=== PATIENT | female | born 1990 ===

== ENCOUNTER 2020-01-28 19:51 | Emergency (ER) | payer SELFPAY ==
[2020-01-28 20:03] VITALS: BP 122/75
[2020-01-28] MEDS ORDERED: KETOROLAC TROMETHAMINE 60 MG/2 ML SDV IM ONE (20:27)
--- NOTE | 2020-01-28 20:30 | ER Document Report ---
ED GI/ - General Chief Complaint: Pelvic Pain Stated Complaint: VAGINAL BLEEDING POST Time Seen by Provider: 01/28/20 20:11 Primary Care Provider: [facility] [Provider Group] - Follow up as needed [facility] [Primary Care Provider] - Follow up as needed Mode of Arrival: Ambulatory Information source: Patient Cannot obtain history due to: Other - [employer] interpreter [id number] used for interview Notes: Interview completed using [employer] interpreter number [id number]. 29-year-old female presented to ED for complaint of pelvic cramping and vaginal bleeding. She states she was seen on Wednesday and was told she was having a miscarriage. She has been [facility] the [facility] since then and the hCG has gone down. She states she was continuing to have cramping and vaginal bleeding. She states she has been through 3 pads today. She states she did have some small blood clots. She states she had taken 2 Tylenol earlier today but no other medications for her pain and discomfort. She is 3 para 1. She states she did have an appointment with the health department tomorrow to be sure that her hCG levels were going down. 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 Associated symptoms: Other - Vaginal bleeding and pelvic cramping Exacerbated by: Movement Relieved by: Denies Similar symptoms previously: Yes Recently seen / treated by doctor: Yes - Related Data Allergies/Adverse Reactions: No Known Allergies Allergy (Unverified 01/28/20 20:15) Past Medical History - General Information source: Patient - Social History Smoking Status: Never Smoker Chew tobacco use (# tins/day): No Frequency of alcohol use: None Drug Abuse: None Lives with: Family Family History: Reviewed & Not Pertinent Patient has homicidal ideation: No - Past Medical History Cardiac Medical History: Reports: None Pulmonary Medical History: Reports: None EENT Medical History: Reports: None Neurological Medical History: Reports: None Endocrine Medical History: Reports: None Renal/ Medical History: Reports: None Malignancy Medical History: Reports: None GI Medical History: Reports: None Musculoskeletal Medical History: Reports None Skin Medical History: Reports None Psychiatric Medical History: Reports: None Traumatic Medical History: Reports: None Infectious Medical History: Reports: None Surgical Hx: Negative Past Surgical History: Reports: None Review of Systems - Review of Systems Constitutional: No symptoms reported EENT: No symptoms reported Cardiovascular: No symptoms reported Respiratory: No symptoms reported Gastrointestinal: No symptoms reported Genitourinary: No symptoms reported Female Genitourinary: Other - Miscarriage Fridays continues with pelvic pain and vaginal bleeding Musculoskeletal: No symptoms reported Skin: No symptoms reported Hematologic/Lymphatic: No symptoms reported Neurological/Psychological: No symptoms reported Physical Exam - Vital signs Vitals: Temp 98.6 F 01/28/20 19:53 Interpretation: Normal - General General appearance: Appears well, Alert - HEENT Head: Normocephalic, Atraumatic Eyes: Normal Pupils: PERRL - Respiratory Respiratory status: No respiratory distress Chest status: Nontender Breath sounds: Normal Chest palpation: Normal - Cardiovascular Rhythm: Regular Heart sounds: Normal auscultation Murmur: No - Abdominal Inspection: Normal Distension: No distension Bowel sounds: Normal Tenderness: Tender - Lower abdomen/pelvic. Organomegaly: No organomegaly - Back Back: Normal, Nontender - Extremities General upper extremity: Normal inspection, Nontender, Normal color, Normal ROM, Normal temperature General lower extremity: Normal inspection, Nontender, Normal color, Normal ROM, Normal temperature, Normal weight bearing. No: Raisa's sign - Neurological Neuro grossly intact: Yes Cognition: Normal Orientation: AAOx4 Quintin Coma Scale Eye Opening: Spontaneous Grover Coma Scale Verbal: Oriented Quintin Coma Scale Motor: Obeys Commands Grover Coma Scale Total: 15 Speech: Normal Motor strength normal: LUE, RUE, LLE, RLE Sensory: Normal - Psychological Associated symptoms: Normal affect, Normal mood - Skin Skin Temperature: Warm Skin Moisture: Dry Skin Color: Normal Course - Re-evaluation Re-evalutation: 01/28/20 23:20 Patient states she was told on Wednesday that she had had a miscarriage. She states she is continuing to have vaginal bleeding with small blood clots at times. She states she continues to have pelvic pain and has taken 2 Tylenol earlier this morning nothing else today. She states she is not taking any ibuprofen. Patient states she came into reevaluate her pelvic pain and bleeding. Patient was treated with Toradol in the emergency room given instructions on ibuprofen and warm packs and instructed to follow-up [facility] tomorrow for her hCG levels she was also given the name and number of [facility] if she had any increase in pain or vaginal bleeding. She was also instructed to return to the ED for any increase in pain or bleeding. Patient was alert oriented respirations regular nonlabored. [employer] parts interpreter [id number] was used for the interview and instructions. Patient was able to verbalize understanding and agreement with treatment plan through the parts interpreter. - Vital Signs Vital signs: Temp Pulse Resp BP Pulse Ox 98.6 F 97 20 122/75 97 01/28/20 20:00 01/28/20 20:00 01/28/20 20:00 01/28/20 20:00 01/28/20 20:00 Discharge - Discharge Clinical Impression: Vaginal bleeding post miscarriage, Pain, pelvic, female Condition: Stable Disposition: HOME, SELF-CARE Instructions: Use of Dgir-Pah-Ursivsx Ibuprofen ([facility]), Miscarriage ([facility]), Toradol Injection ([facility]), Warm Packs ([facility]), Follow-Up Care ([facility]) Additional Instructions: Miscarriage You have had a miscarriage (medically called a "spontaneous "). The miscarriage occurred because the fetus did not develop normally. There is nothing you did to cause it, and nothing you could have done to prevent it. About one in four ends in miscarriage. You should rest in bed for two or three days. As there is some risk of infection of the uterus, you should not have intercourse for one week (or until okayed by your physician). You might not have a period for six to eight weeks. You should not become again for at least three months -- the uterus requires time to get back to normal. Call the doctor or return for re-examination if there is heavy or persistent vaginal bleeding, fever, foul discharge, continued cramping pains, or abdominal pain. Toradol Injection You have been given an injection of ketorolac tromethamine (Toradol). This is an excellent, safe drug for pain control. It also has potent antiinflammatory action. You should have significant pain relief within about one hour. Toradol is not addicting and is non-sedating. It does not interfere with driving or work. Call or return if you develop itching, hives, shortness of breath, or rash. Ibuprofen Ibuprofen is an excellent, safe drug for pain control. In addition, it has potent antiinflammatory effects which are beneficial, especially in the treatment of injuries, arthritis, or tendonitis. It's best to take ibuprofen with food. Persons with ulcer disease or allergy to aspirin should notify their physician of this before taking ibuprofen. Take the medication exactly as prescribed. Don't take additional doses unless instructed to do so by your doctor. If you develop wheezing, shortness of breath, hives, faintness, stomach pain, vomiting, or dark black stools, return for re-evaluation at once. Warm Packs After approximately two days, apply gentle heat (such as a heating pad or hot water bottle) for about 20 to 30 minutes about every two hours -- at least four times daily. Warmth and elevation will help you make a more rapid recovery, and will ease the pain considerably. Do not use HOT heat, and never apply heat for longer than 30 minutes. The continuous heat can invisibly damage skin and muscles -- even when no burn is seen on the surface. Damaged muscles can make you MORE sore. FOLLOW-UP CARE: If you have been referred to a physician for follow-up care, call the physicians office for an appointment as you were instructed or within the next two days. If you experience worsening or a significant change in your symptoms, notify the physician immediately or return to the Emergency Department at any time for re-evaluation. Referrals: [facility] [Primary Care Provider] - Follow up as needed [facility] [Provider Group] - Follow up as needed Print Language: Lao
== END 2020-01-28 20:40 | disposition home or self-care (01) ==
LOC: ER 19:51
DX: O03.6 Delayed or excessive hemorrhage following complete or unspecified spontaneous abortion (principal); R10.2 Pelvic and perineal pain
CPT/HCPCS: 99283; 96372; J1885